=== PATIENT | male | born 1990 | race American Indian/Alaskan Native ===

== ENCOUNTER 2017-04-08 06:36 | Emergency (ER) | payer SELFPAY ==
[2017-04-08 06:46] VITALS: BP 131/84; TEMP 98.8; O2SAT 100
--- NOTE | 2017-04-08 07:29 | C.PDOC ---
History Of Present Illness 27 y/o male complaining of subjective fever, cough w/sputum, sore throat, and swollen glands x 4 days. Patient denies having sick contacts. Time Seen by Provider: 04/08/17 06:59 Chief Complaint (Nursing): Flu-like Symptoms History Per: Patient History/Exam Limitations: no limitations Onset/Duration Of Symptoms: Days Current Symptoms Are (Timing): Still Present Sick Contacts (Context): None Associated Symptoms: Fever, Sore Throat, Cough Severity: Moderate Past Medical History Reviewed: Historical Data, Nursing Documentation, Vital Signs Vital Signs: Last Vital Signs Temp 98.8 F 04/08/17 06:42 Pulse 84 04/08/17 06:42 Resp 18 04/08/17 06:42 BP 131/84 04/08/17 06:42 Pulse Ox 100 04/08/17 07:38 - Medical History PMH: No Chronic Diseases Other Surgeries: Hx of surgeries Family History: States: No Known Family Hx - Social History Hx Alcohol Use: Yes Hx Substance Use: No - Immunization History Hx Tetanus Toxoid Vaccination: No Hx Influenza Vaccination: No Hx Pneumococcal Vaccination: No Review Of Systems Constitutional: Positive for: Fever ENT: Positive for: Throat Pain Respiratory: Positive for: Cough Physical Exam - Physical Exam Appears: Non-toxic, No Acute Distress, Other (well developed, well nourished) Skin: Normal Color, Warm Head: Atraumatic, Normacephalic Eye(s): bilateral: Normal Inspection Ear(s): Bilateral: Normal Nose: Discharge (mild nasal congestion) Oral Mucosa: Moist Throat: No Erythema, No Exudate, Other (bilateral enlarged tonsils (L>R)) Neck: Supple Lymphatic: Adenopathy (submandiubular lymphadenopathy) Cardiovascular: Rhythm Regular Respiratory: Normal Breath Sounds, No Accessory Muscle Use, No Rales, No Rhonchi , No Wheezing Neurological/Psych: Oriented x3, Normal Speech, Normal Motor, Normal Sensation ED Course And Treatment O2 Sat by Pulse Oximetry: 100 (RA) Pulse Ox Interpretation: Normal Progress Note: Ibuprofen, Rapid Strep Medical Decision Making Medical Decision Making: rapid strep neg, d/c with flu like symptoms Disposition Counseled Patient/Family Regarding: Studies Performed, Diagnosis, Need For Followup - Disposition Referrals: Non [facility] Provider, [Primary Care Provider] - Disposition: HOME/ ROUTINE Disposition Time: 08:32 Condition: STABLE Additional Instructions: Gargle with warm salty water, Tylenol or Motrin for pain if needed. Increased fluid intake- water, tea. Increased bed rest.Follow up wiht your doctor in a few days. 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 - Scribe Statement The provider has reviewed the documentation as recorded by the Scribe Deirdre Norton Provider Attestation All medical record entries made by the Tyleribe were at my direction and personally dictated by me. I have reviewed the chart and agree that the record accurately reflects my personal performance of the history, physical exam, medical decision making, and the department course for this patient. I have also personally directed, reviewed, and agree with the discharge instructions and disposition.
[2017-04-08 08:41] VITALS: PULSE 79; RESP 16
== END 2017-04-08 08:41 | disposition home or self-care (01) ==
LOC: SUPCPDRO 06:36 → C.ER 06:36
DX: J11.1 Influenza due to unidentified influenza virus with other respiratory manifestations (principal)